=== PATIENT | female | born 1960 | race Caucasian/White ===

== ENCOUNTER 2017-05-26 18:47 | Emergency (ER) | payer BC ==
[~2017-05-26] VITALS: Ht 157.5 cm; Wt 83.0 kg
[2017-05-26 19:02] VITALS: Ht 157.5 cm; Wt 83.0 kg
[2017-05-26] MEDS ORDERED: HYDROCODONE/APAP (5/325) TAB PO ONE (19:30)
--- NOTE | 2017-05-26 20:59 | RADRPT ---
PROCEDURE: XR right Ankle. CLINICAL INDICATION: ankle pain TECHNIQUE: AP, oblique and lateral views of the ankle were performed. COMPARISON: None. FINDINGS: There is normal mineralization and alignment. No acute fracture is identified. The angle mortise is intact. There is lateral soft tissue swelling. IMPRESSION: Lateral soft tissue swelling is present without evidence of discrete fracture. RPTAT:AAJJ Physician Mason Date Time Electronically viewed and signed by Justin Chan Physician on 05/26/2017 20:58 /
[2017-05-26] MEDS ORDERED: HYDR-906 PO (21:08)
[2017-05-26] MEDS ORDERED: COLC0.6T6 PO (21:08)
--- NOTE | 2017-05-26 21:12 | ERD ---
ER Documentation Chief Complaint Date/Time DATE: 05/26/17 TIME: 21:10 Chief Complaint right ankle pain and swelling x1 day. HPI Patient is a 57-year-old female who presents with right lateral ankle pain and swelling that she woke up with yesterday. Denies trauma. Pain is worse with movement but she is able to ambulate. She has been taking Motrin at home. Denies any numbness or tingling. Denies any fever or redness. ROS All systems reviewed and are negative except as per history of present illness. Medications Home Meds Active Scripts Colchicine* (Colcrys*) 0.6 Mg Tablet, 0.6 MG PO ONCE for 3 Days, TAB Prov:SALEEM VINES PA-C 05/26/17 Hydrocodone/Acetaminophen (Damon 5-325 Tablet) 1 Each Tablet, 1 TAB PO Q6H Y for PAIN, #20 TAB Prov:SALEEM VINES PA-C 05/26/17 PMhx/Soc Medical and Surgical Hx: pt denies Medical Hx, pt denies Surgical Hx Hx Alcohol Use: No Hx Substance Use: No Hx Tobacco Use: No Smoking Status: Never smoker FmHx Family History: No diabetes Physical Exam Vitals Vital Signs Date Time Temp Pulse Resp B/P Pulse Ox O2 Delivery O2 Flow Rate FiO2 05/26/17 19:02 98.6 92 18 118/64 97 Physical Exam INITIAL VITAL SIGNS: Reviewed by me GENERAL: Awake, alert and oriented x 4, well appearing, nontoxic, speaking in full sentences. No acute distress NECK: Supple. No masses. Full range of motion. No meningismus. No midline tenderness. RESPIRATORY: Clear to auscultation bilaterally. Symmetric chest wall rise. No wheezing or rales. No accessory muscle use. CV: Regular rate and rhythm. No murmurs, rubs, or gallops. EXTREMITIES: Swelling and tenderness over the right lateral malleolus, no erythema, no warmth, pedal pulse 2+, capillary refill less than 2 seconds, ambulatory, sensation to light touch is intact Results 24 hrs Current Medications Medications (Trade) Dose Ordered Sig/Allen Route PRN Reason Start Time Stop Time Status Last Admin Dose Admin Acetaminophen/ Hydrocodone Bitart (Damon (5/325)) 1 tab ONCE ONCE PO 05/26/17 19:30 05/26/17 19:31 DC 05/26/17 19:40 Procedures/MDM 57-year-old female presents for right ankle pain and swelling. There is no trauma. Patients is alert, oriented, well appearing, and in no distress with normal vital signs. There is no fever, tachycardia, or tachypnea. No evidence of cellulitis. This is most likely a sprain versus gout. X-ray was negative for fracture dislocation. She declined crutches. She was given prescription for Damon and colchicine. Patient counseled regarding my diagnostic impression and care plan. Prior to discharge all questions answered. Pt agrees with treatment plan and understands strict return precautions. Pt is instructed to follow up with primary care provider within 24-48 hours. Precautionary instructions provided including instructions to return to the ER if not improving or for any worsening or changing symptoms or concerns. Departure Diagnosis: Primary Impression: Ankle pain Condition: Stable Patient Instructions: Treating Ankle Sprains, Treating Gout Attacks Additional Instructions: Call your primary care doctor TOMORROW for an appointment during the next 1-2 days.See the doctor sooner or return here if your condition worsens before your appointment time. SALEEM VINES PA-C May 26, 2017 21:12
[2017-05-26 21:23] VITALS: BP 130/73; PULSE 69; RESP 16; TEMP 98.6
== END 2017-05-26 21:24 | disposition home or self-care (01) ==
LOC: FTE 18:47
DX: M25.571 Pain in right ankle and joints of right foot (principal)

== ENCOUNTER 2019-06-01 10:30 | Emergency (ER) | payer SELFPAY ==
[~2019-06-01] VITALS: Ht 157.5 cm; Wt 80.0 kg
[~2019-06-01 10:30] MED LIST: COLC0.6T6 PO; HYDR-4011 PO
[2019-06-01 10:32] VITALS: BP 120/76; PULSE 76; RESP 18; Ht 157.5 cm; Wt 80.0 kg
== END 2019-06-01 11:30 | disposition left against medical advice (07) ==
LOC: FTE 10:30
DX: Z53.21 Procedure and treatment not carried out due to patient leaving prior to being seen by health care provider (principal)